=== PATIENT | male | born 1990 | race Caucasian/White ===

== ENCOUNTER 2022-03-05 13:55 | Inpatient (IN) | payer OTHER, SELFPAY ==
[2022-03-05 14:50] LABS: #Basophils 0.1 10x3/uL (0.0-0.2); #Eosinphils 0.1 10x3/uL (0.0-0.5); #Neutrophils 5.5 10x3/uL (1.5-8.4); %Basophils 0.6 % (0.0-2.0); %Eosinophils 1.1 % (0.0-6.0); %Monocytes 11.1 % (0.0-10.0); %Neutrophils 58.8 % (40.0-75.0); Hemoglobin 13.8 g/dL (13.5-17.5); Mean Corpuscular HGB CONC 33.1 g/dL (32.0-36.0); Mean Corpuscular Hemoglobin 32.7 pg (27.0-33.0); Mean Corpuscular Volume 98.8 fl (81.2-95.1); Mean Platelet Volume 10.2 fl (7.4-10.4); Platelet Count 114 10x3/uL (150-450); RBC Distribution Width 13.9 % (11.5-14.5); Red Blood Cell (RBC) Count 4.22 10x6/uL (4.32-5.72); White Blood Cell (WBC) Count 9.4 10x3/uL (3.5-10.5)
[2022-03-05 14:55] LABS: Acetaminophen Less than 10.0 mcg/mL (10.0-30.0); Alcohol 37 mg/dL (Less than 10); Salicylate Less than 8.0 mg/dL (15.0-30.0)
[2022-03-05 14:55] LABS: ALT (SGPT) 60 U/L (8-55); AST (SGOT) 181 U/L (5-34); Albumin 4.6 g/dL (3.5-5.0); Alkaline Phosphatase 82 U/L (40-110); BUN (Urea Nitrogen) 16 mg/dL (8.9-20.6); Bilirubin, Total 1.8 mg/dL (0.2-1.2); Calc. Creatinine Clearance 0 mL/min (70-130); Calcium 8.6 mg/dL (7.8-10.44); Chloride 94 mmol/L (98-107); Globulin 2.8 g/dL (2.4-3.5); Glucose 73 mg/dL (70-105); Lipase 122 U/L (8-78); Potassium 4.4 mmol/L (3.5-5.1); Protein, Total 7.4 g/dL (6.0-8.3); Sodium 134 mmol/L (136-145)
[2022-03-05 15:00] LABS: Carbon Dioxide Less than 8 mmol/L (22-29)
[2022-03-05] MEDS ORDERED: Diazepam 5 MG TAB ONE (16:36)
[2022-03-05] MEDS ORDERED: Folic Acid 1 MG, Multivitamins, Adult 10 ML in Dextrose 5 %-0.45 % NaCl 1,000 ML IV SCH (17:00)
[2022-03-05] MEDS ORDERED: Thiamine HCl 200 MG/2 ML VIAL SLOW IVP SCH (17:00)
[2022-03-05 17:39] LABS: Amphetamine Not Detected (NotDetected); Barbiturates Screen Not Detected (NotDetected); Benzodiazepine Screen Not Detected (NotDetected); Cocaine Metabolite Screen Not Detected (NotDetected); Methadone Not Detected (NotDetected); Methamphetamine Not Detected (NotDetected); Opiate Screen Not Detected (NotDetected); Oxycodone Screen Not Detected (NotDetected); Phencyclidine (PCP) Not Detected (NotDetected); THC/Cannabinoid Screen Not Detected (NotDetected); Tricyclic Screen Not Detected (NotDetected)
[2022-03-05] MEDS ORDERED: Ondansetron ODT 4 MG TAB PO PRN (17:44)
[2022-03-05] MEDS ORDERED: Lorazepam 2 MG/ML VIAL IM PRN (17:44)
[2022-03-05] MEDS ORDERED: Electrolyte Replacement Protocol 1 EACH FS SCH (17:45)
[2022-03-05 18:28] VITALS: BMI 30.3
[2022-03-05] MEDS: Sodium Chloride 0.9% 1,000 ML IV SCH (18:43)
[2022-03-05] MEDS: Lorazepam 1 MG TAB PO SCH ×2 (18:49→23:06)
[2022-03-05 18:58] LABS: Lactic Acid 3.7 mmol/L (0.5-2.2)
[2022-03-05] MEDS: Lorazepam 1 MG TAB PO PRN (20:34)
[2022-03-06] MEDS: Lorazepam 1 MG TAB PO PRN (01:18)
[2022-03-06] MEDS: Sodium Chloride 0.9% 1,000 ML IV SCH ×3 (01:18→17:06)
[2022-03-06] MEDS: Lorazepam 1 MG TAB PO SCH ×4 (04:45→23:45)
[2022-03-06 05:22] LABS: ALT (SGPT) 45 U/L (8-55); AST (SGOT) 105 U/L (5-34); Alkaline Phosphatase 62 U/L (40-110); Anion Gap 23 mmol/L (10-20); BUN (Urea Nitrogen) 11 mg/dL (8.9-20.6); Bilirubin, Total 2.3 mg/dL (0.2-1.2); Calc. Creatinine Clearance 159 mL/min (70-130); Calcium 8.4 mg/dL (7.8-10.44); Carbon Dioxide 16 mmol/L (22-29); Chloride 103 mmol/L (98-107); Globulin 2.6 g/dL (2.4-3.5); Glucose 72 mg/dL (70-105); Lipase 344 U/L (8-78); Magnesium 2.2 mg/dL (1.6-2.6); Phosphorus 2.8 mg/dL (2.3-4.7); Potassium 5.1 mmol/L (3.5-5.1); Protein, Total 6.6 g/dL (6.0-8.3); Sodium 137 mmol/L (136-145)
[2022-03-06] MEDS: Multivit, Therapeutic 1 TAB PO SCH (07:56)
[2022-03-06] MEDS: Folic Acid 1 MG TAB PO SCH (07:56)
[2022-03-06] MEDS: Thiamine HCl 200 MG/2 ML VIAL SLOW IVP SCH (07:56)
[2022-03-06] MEDS ORDERED: Lorazepam 1 MG TAB PO PRN (17:44)
[2022-03-07 04:35] LABS: ALT (SGPT) 44 U/L (8-55); AST (SGOT) 84 U/L (5-34); Albumin 4.2 g/dL (3.5-5.0); Alkaline Phosphatase 69 U/L (40-110); Anion Gap 18 mmol/L (10-20); BUN (Urea Nitrogen) 4 mg/dL (8.9-20.6); Bilirubin, Total 2.4 mg/dL (0.2-1.2); Calc. Creatinine Clearance 203 mL/min (70-130); Calcium 8.9 mg/dL (7.8-10.44); Carbon Dioxide 21 mmol/L (22-29); Chloride 101 mmol/L (98-107); Globulin 3.1 g/dL (2.4-3.5); Glucose 88 mg/dL (70-105); Potassium 3.5 mmol/L (3.5-5.1); Protein, Total 7.3 g/dL (6.0-8.3); Sodium 136 mmol/L (136-145)
[2022-03-07] MEDS: Sodium Chloride 0.9% 1,000 ML IV SCH ×2 (05:57→11:31)
[2022-03-07] MEDS: Lorazepam 1 MG TAB PO SCH ×2 (06:07→12:05)
[2022-03-07] MEDS: Multivit, Therapeutic 1 TAB PO SCH (08:49)
[2022-03-07] MEDS: Folic Acid 1 MG TAB PO SCH (08:49)
[2022-03-07] MEDS: Thiamine HCl 200 MG/2 ML VIAL SLOW IVP SCH (08:50)
[2022-03-07] MEDS ORDERED: Potassium Chloride 20 MEQ TAB PO SCH (09:00)
[2022-03-07] MEDS ORDERED: Lorazepam 1 MG TAB PO PRN (17:44)
[2022-03-07] MEDS ORDERED: Lorazepam 0.5 MG TAB PO SCH (17:45)
[2022-03-08] MEDS ORDERED: Lorazepam 0.5 MG TAB PO PRN (17:44)
[2022-03-09] MEDS ORDERED: Thiamine 100 MG TAB PO SCH (09:00)
== END 2022-03-07 14:25 | disposition home or self-care (01) | DRG 896 ==
LOC: CSHERS 13:55 → CSHIMCU 17:58
PROVIDERS: ADMIT Hospitalist; ATTEND Internal Medicine
DX: F10.239 Alcohol dependence with withdrawal, unspecified (principal); K85.20 Alcohol induced acute pancreatitis without necrosis or infection; E87.2 Acidosis; F32.A Depression, unspecified; F17.210 Nicotine dependence, cigarettes, uncomplicated; I48.0 Paroxysmal atrial fibrillation; Z88.0 Allergy status to penicillin; Z79.899 Other long term (current) drug therapy
CPT/HCPCS: 36415; 71045; 80053; 80306; 80307; 83605; 83690; 83735; 84100; 84484; 85025; 93005; 96361; 96365; J3411; J7042; J7050; Q0162

== ENCOUNTER 2022-03-22 16:47 | Emergency (ER) | payer OTHER ==
[2022-03-22 17:30] LABS: #Eosinphils 0.1 10x3/uL (0.0-0.5); #Monocytes 0.4 10x3/uL (0.0-1.1); #Neutrophils 2.2 10x3/uL (1.5-8.4); %Basophils 0.7 % (0.0-2.0); %Eosinophils 1.5 % (0.0-6.0); %Lymphocytes 32.9 % (18.0-47.0); %Monocytes 10.3 % (0.0-10.0); %Neutrophils 54.4 % (40.0-75.0); Hemoglobin 12.8 g/dL (13.5-17.5); Mean Corpuscular Volume 94.3 fl (81.2-95.1); Mean Platelet Volume 9.2 fl (7.4-10.4); Platelet Count 125 10x3/uL (150-450); Red Blood Cell (RBC) Count 3.88 10x6/uL (4.32-5.72); White Blood Cell (WBC) Count 4.1 10x3/uL (3.5-10.5)
[2022-03-22] MEDS ORDERED: Lorazepam 2 MG/ML VIAL ONE (17:35)
[2022-03-22 17:41] LABS: Acetaminophen Less than 10.0 mcg/mL (10.0-30.0); Salicylate Less than 8.0 mg/dL (15.0-30.0)
[2022-03-22 17:42] LABS: ALT (SGPT) 50 U/L (8-55); AST (SGOT) 99 U/L (5-34); Albumin 4.6 g/dL (3.5-5.0); Alkaline Phosphatase 62 U/L (40-110); Anion Gap 20 mmol/L (10-20); BUN (Urea Nitrogen) 9 mg/dL (8.9-20.6); Bilirubin, Total 0.7 mg/dL (0.2-1.2); Calc. Creatinine Clearance 0 mL/min (70-130); Calcium 8.7 mg/dL (7.8-10.44); Carbon Dioxide 25 mmol/L (22-29); Chloride 100 mmol/L (98-107); Estimated GFR 110; Globulin 2.9 g/dL (2.4-3.5); Glucose 99 mg/dL (70-105); Potassium 3.8 mmol/L (3.5-5.1); Protein, Total 7.5 g/dL (6.0-8.3); Sodium 141 mmol/L (136-145)
[2022-03-22 17:48] LABS: Alcohol 425 mg/dL (Less than 10)
[2022-03-22 18:08] LABS: Bilirubin Neg (Negative); Blood, Urine Negative (Negative); Clarity Clear (Clear); Glucose, Urine (Dipstick) Normal (Negative); Ketone, Urine Negative (Negative); Leukocyte Negative (Negative); Nitrite Negative (Negative); Protein, Urine (Dipstick) 30 mg/dl (Neg-Trace); Urobilinogen Normal mg/dL (Less than 2); pH, Urine 6.5 (5.0-9.0)
[2022-03-22 18:25] LABS: Bacteria/HPF Rare-Few HPF (None Seen); Mucous/LPF Rare LPF (<2+); RBC/HPF 0-3 HPF (0-3); Squamous Epithelial 0-3 HPF (0-3); WBC/HPF None Seen HPF (0-3)
[2022-03-22 18:26] LABS: Amphetamine Not Detected (NotDetected); Barbiturates Screen Not Detected (NotDetected); Benzodiazepine Screen Not Detected (NotDetected); Cocaine Metabolite Screen Not Detected (NotDetected); Methadone Not Detected (NotDetected); Methamphetamine Not Detected (NotDetected); Opiate Screen Not Detected (NotDetected); Oxycodone Screen Not Detected (NotDetected); Phencyclidine (PCP) Not Detected (NotDetected); THC/Cannabinoid Screen Not Detected (NotDetected); Tricyclic Screen Not Detected (NotDetected)
[2022-03-22] MEDS ORDERED: Nicotine 14 MG PATCH ONE (19:07)
== END 2022-03-22 21:08 | disposition home or self-care (01) ==
LOC: CSHERS 16:47
DX: F10.10 Alcohol abuse, uncomplicated (principal); I48.91 Unspecified atrial fibrillation; F17.210 Nicotine dependence, cigarettes, uncomplicated
CPT/HCPCS: 80053; 80306; 80307; 81003; 81015; 84443; 85025; 93005; 96361; 96374; J2060